=== PATIENT | female | born 1965 | race Caucasian/White ===

== ENCOUNTER → 2017-02-16 | Outpatient (CLI) | payer BC ==
--- NOTE | 2017-02-17 07:00 | MM ---
Reason for exam: screening (asymptomatic). Last mammogram was performed 1 year ago. History: Patient history of other cancer. Family history of breast cancer in paternal grandmother. Benign left mammotome panel of the left breast, November 27, 2006. Physical Findings: A clinical breast exam by your physician is recommended on an annual basis and results should be correlated with mammographic findings. MG Screening Mammo w CAD Bilateral CC and MLO view(s) were taken. Prior study comparison: February 15, 2016, bilateral MG screening mammo w CAD. February 10, 2015, bilateral MG screening mammo w CAD. There are scattered fibroglandular densities. There is no discrete abnormality. No significant changes when compared with prior studies. ASSESSMENT: Negative, BI-RAD 1 RECOMMENDATION: Routine screening mammogram of both breasts in 1 year.
== END | disposition home or self-care (01) ==
LOC: RADMAMWWP 06:53
PROVIDERS: ATTEND Family Medicine
DX: Z12.31 Encounter for screening mammogram for malignant neoplasm of breast (principal)

== ENCOUNTER → 2017-02-17 | Outpatient (CLI) | payer BC ==
--- NOTE | 2017-02-17 16:55 | MR ---
EXAMINATION TYPE: MR ankle LT wo con DATE OF EXAM: 02/17/2017 COMPARISON: NONE HISTORY: Left ankle pain and burning, Post. Tibial tendonitis CONTRAST: Performed utilizing 0 mL intravenous Gadavist gadolinium contrast. TECHNIQUE: Multiplanar, multiecho imaging on a 3.0 Michelle magnet is performed through the left ankle. FINDINGS: Signal through the osseous structures are normal. Achilles tendon is normal. Peroneal longu s and brevis tendons have normal low signal. Posterior tibial and flexor hallucis longus tendons have normal low signal. There is a small amount of increased signal within the central portion of the posterior tibial tendon below the medial malle olus. Mild internal derangement is likely present at this location. There is some slight increased f luid adjacent to the posterior tibial and flexor hallucis longus tendons. Some tendinosis is also pre sent at these levels. The ankle mortise is intact. Diffuse soft tissue swelling is evident between the calcaneus and talus as well as inferior to the medial malleolus. There appears to be normal low signal within the talotib ial ligaments. Some strain is not excluded. Talofibular ligaments are normal. IMPRESSIONS: 1. Mild internal derangement just distal to the medial malleolus within the posterior tibial tendon. 2. There is tendinosis of the posterior tibial tendon and flexor hallux longus tendons. 3. Medial talofibular mild strain. Disruption is not identified. 4. Mild soft tissue swelling inferior medial malleolus.
== END | disposition home or self-care (01) ==
LOC: RADMRIMAIN 06:59
PROVIDERS: ATTEND Podiatrist Foot & Ankle Surgery
DX: S96.812A Strain of other specified muscles and tendons at ankle and foot level, left foot, initial encounter (principal); M24.872 Other specific joint derangements of left ankle, not elsewhere classified; M77.52 Other enthesopathy of left foot and ankle

== ENCOUNTER → 2019-01-10 | Outpatient (CLI) | payer BC ==
--- NOTE | 2019-01-10 22:20 | CONS ---
CONSULTATION DATE OF SERVICE: 01/10/2019 This patient is a 53-year-old lady who has [facility] for obstructive sleep apnea-hypopnea syndrome. HISTORY OF PRESENT ILLNESS/SLEEP-WAKE EVALUATION: The patient has a history of being diagnosed with obstructive sleep apnea in 2014. At that time her home sleep apnea test showed apnea-hypopnea index 33.9 with oxygen desaturation to 82%. The patient was started on treatment with AutoPap at that time and used her CPAP equipment for about 8 months, but then she stopped using the equipment. At present her sleep schedule is from 8 p.m. to 5:15 a.m. on weekdays and from 10 p.m. to 6:15 a.m. on weekends. Usually no problems with falling asleep. No TV in bedroom. She usually sleeps on the back position with loud snoring. Patient wakes up from sleep 5 times with up to 3 episodes of nocturia. No history of hypnagogic hallucinations, sleep paralysis or cataplexy. In the morning the patient wakes up tired. She usually does not take any naps. [place] Sleepiness Scale today is increased at 10. PAST MEDICAL HISTORY: 1. Hypertension. 2. Anxiety. 3. 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 4. Episodes of headaches. 5. History of hernia repair. MEDICATIONS: 1. Lisinopril. 2. Citalopram. SOCIAL HISTORY: Positive for smoking for about 18 years, half pack a day. Alcohol consumption occasional. FAMILY HISTORY: Hypertension. REVIEW OF SYSTEMS: Loud snoring, multiple awakenings from sleep, tiredness and sleepiness during the day. PHYSICAL EXAMINATION: GENERAL: A pleasant lady without distress. VITAL SIGNS: BP 113/75, HR 102, RR 14, height 5 feet 5 inches, weight 201. Temperature 98.3. HEENT: PERRLA, EOMI. Evaluation of oropharynx showed tongue protrudes midline. Extremely low position of soft palate. Mallampati IV. Restriction of nasal breathing. NECK: Supple. No JVD. Thyroid is not palpable. Wide neck; 19 inches in circumference. LUNGS: Clear to percussion and to auscultation. Good air exchange. No wheezing or rhonchi. HEART: S1, S2 regular. No murmurs, gallops or rubs. ABDOMEN: Obese. EXTREMITIES: No clubbing or cyanosis. FOOD COUNTER ATTENDANT: Awake, alert, and oriented X3. Cranial nerves 2 to 7 intact. There is no fasciculation or atrophy. noted. No focal deficits observed. IMPRESSION: 1. Snoring, multiple awakenings from sleep, obstructive sleep apnea by results of home sleep apnea test in 2015, extremely low soft palate, wide neck; obstructive sleep apnea-hypopnea syndrome. 2. Obesity. 3. Hypertension. 4. Anxiety. 5. Status post hernia repair. 6. Episodes of headaches in the past. 7. Status post squamous cell carcinoma removed from the face. PLAN: 1. Patient will start to use her AutoPAP machine. I will adjust pressure to the lower range. 2. We will fit the patient with a full-face mask because she has difficulty breathing through the nose. I would suggest trying to use [employer]. 3. Losing weight. 4. Sleep hygiene with regular time in bed for at least 8 hours. 5. No driving if feeling any sleepiness. Thank you very much for allowing me to participate in the management of your patient. Sincerely, Paolo Marshall MD, PhD, FAASM Diplomat of [employer] [facility] [place] MMODL / IJN: [id number] /
== END ==
LOC: SLEEP 14:19
PROVIDERS: ATTEND Internal Medicine
DX: G47.33 Obstructive sleep apnea (adult) (pediatric) (principal); E66.9 Obesity, unspecified; I10 Essential (primary) hypertension; F41.9 Anxiety disorder, unspecified; R51 Headache; Z98.890 Other specified postprocedural states; F17.210 Nicotine dependence, cigarettes, uncomplicated; Z79.899 Other long term (current) drug therapy
CPT/HCPCS: 99211

== ENCOUNTER → 2019-05-31 | Outpatient (CLI) | payer BC ==
--- NOTE | 2019-05-31 14:30 | MM ---
Reason for exam: screening (asymptomatic). Last mammogram was performed 1 year and 3 months ago. History: Patient history of other cancer. Family history of breast cancer in paternal grandmother. Benign left mammotome panel of the left breast, November 27, 2006. Physical Findings: A clinical breast exam by your physician is recommended on an annual basis and results should be correlated with mammographic findings. MG Screening Mammo w CAD Bilateral CC and MLO view(s) were taken. Prior study comparison: March 06, 2018, bilateral MG screening mammo w CAD. February 16, 2017, bilateral MG screening mammo w CAD. There are scattered fibroglandular densities. Previous mammotome biopsy in the left breast. There is chronic nodularity bilaterally. There is no dominant lesion. ASSESSMENT: Benign, BI-RAD 2 RECOMMENDATION: Routine screening mammogram of both breasts in 1 year.
== END | disposition home or self-care (01) ==
LOC: RADMAMWWP 07:10
PROVIDERS: ATTEND Family Medicine
DX: Z12.31 Encounter for screening mammogram for malignant neoplasm of breast (principal)
CPT/HCPCS: 77067

== ENCOUNTER → 2021-02-10 | Outpatient (CLI) | payer BC ==
--- NOTE | 2021-02-11 11:16 | MM ---
Reason for exam: screening (asymptomatic). Last mammogram was performed 1 year and 8 months ago. History: Patient history of other cancer. Family history of breast cancer in paternal grandmother. Benign left mammotome panel of the left breast, November 27, 2006. Physical Findings: A clinical breast exam by your physician is recommended on an annual basis and results should be correlated with mammographic findings. MG Screening Mammo w CAD Bilateral CC and MLO view(s) were taken. XCCL view(s) were taken of the right breast. Prior study comparison: May 31, 2019, bilateral MG screening mammo w CAD. March 06, 2018, bilateral MG screening mammo w CAD. The breast tissue is almost entirely fat. There is no discrete abnormality. No significant changes when compared with prior studies. ASSESSMENT: Negative, BI-RAD 1 RECOMMENDATION: Routine screening mammogram of both breasts in 1 year.
== END | disposition home or self-care (01) ==
LOC: RADMAMWWP 16:34
PROVIDERS: ATTEND Family Medicine
DX: Z12.31 Encounter for screening mammogram for malignant neoplasm of breast (principal)
CPT/HCPCS: 77067